=== PATIENT | male | born 1955 | race Asian ===

== ENCOUNTER 2025-08-31 08:40 | Outpatient (CLI) | payer MEDICARE, MEDICAID ==
[~2025-08-31 08:40] MED LIST: AMLO2.5T2 PO; ATOR40TA PO; METO-467 PO
--- NOTE | 2025-08-31 12:22 | RADIOLOGY REPORT ---
Technique: Real-time ultrasound imaging of the abdomen was performed with grayscale and color Doppler. Indication: HISTORY OF HEPATITIS B Comparison: None Findings: Liver measures 13.4 cm. It is increased in echogenicity and echotexture without focal mass. Portal vein is normal in caliber and demonstrates normal hepatopetal flow. Gallbladder not adequately visualized. The common bile duct measures 3 mm. No intrahepatic biliary ductal dilatation. The right kidney measures 10.4 cm. There is no hydronephrosis or sonographic evidence of nephrolithiasis. There is a 1.9 cm right renal cyst. Pancreas obscured. Impression: Gallbladder not visualized, may be ruled. Correlate with cholecystectomy history. MRCP can be obtained to further characterize. Echogenic liver which can be seen with hepatic steatosis, cirrhosis.
== END 2025-08-31 23:59 | disposition home or self-care (01) ==
LOC: RAD 08:40
PROVIDERS: ATTEND Student in an Organized Health Care Education/Training Program
DX: Z90.49 Acquired absence of other specified parts of digestive tract (principal); Z86.19 Personal history of other infectious and parasitic diseases
CPT/HCPCS: 76700